=== PATIENT | female | born 1980 | race Hispanic/Latino ===

== ENCOUNTER 2025-03-29 02:20 | Emergency (ER) | payer BC ==
[~2025-03-29] VITALS: Ht 160 cm; Wt 80.7 kg
--- NOTE | 2025-03-29 02:23 | NUR ---
UA CUP PROVIDED
--- NOTE | 2025-03-29 02:30 | NUR ---
REPORT TO SIMBA SHEEHAN
--- NOTE | 2025-03-29 02:30 | NUR ---
UA COLLECTED AND SENT
[2025-03-29 02:39] LABS: APPEARANCE,URINE CLEAR (CLEAR); GLUCOSE, URINE (UA) NEGATIVE (NEGATIVE); LEUKOCYTE ESTERASE ,URINE NEGATIVE Leu/uL (NEGATIVE); NITRATE,URINE NEGATIVE (NEGATIVE); OCCULT BLOOD,URINE SMALL (NEGATIVE)
[2025-03-29 02:48] LABS: ADD UA MICROSCOPIC YES
[2025-03-29 02:49] LABS: SQUAMOUS EPITHELIAL CELL,UR FEW /HPF (0-2)
[2025-03-29 02:50] LABS: IMMATURE GRANULOCYTE ABSOLUTE 0.07 K/uL (0-1); NUCLEATED RED BLOOD CELLS 0.0 % (0.0-0.19); PLATELET COUNT (AUTO) 251 K/uL (130-400); RED BLOOD CELL COUNT(AUTO) 4.09 MIL/uL (4.00-5.50); RED CELL DISTRIBUTION WIDTH 13.1 % (11.0-15.5); WHITE BLOOD COUNT (AUTO) 18.0 K/uL (4.8-10.8)
--- NOTE | 2025-03-29 02:58 | ERN ---
General Chief Complaint: Nausea,Vomiting,Diarrhea Stated Complaint: NAUSEA/VOMITING, DIARRHEA Time Seen by MD: 02:24 Source: patient, family History of Present Illness Initial Comments 44-year-old healthy female who comes in with nausea vomiting and diarrhea of sudden onset after eating dinner tonight. All of the foods she ate tonight she has eaten before. No fevers but positive chills. No urinary tract symptoms does not know she is . Prior surgeries. Allergies: Coded Allergies: No Known Allergies (Unverified Allergy, Unknown, 03/29/25) Past Medical History Past Medical History: No Pertinent History Past Surgical History: None Constitutional: (+) chills EENTM: (-) eye pain, (-) blurred vision, (-) tearing, (-) double vision, (-) ear pain, (-) ear discharge, (-) nose pain, (-) nose congestion, (-) throat pain, (-) Throat swelling, (-) mouth pain, (-) tooth pain, (-) mouth swelling, (-) other documentation Respiratory: (-) cough, (-) orthopnea, (-) short of breath, (-) stridor, (-) wheezing, (-) other documentation Cardiovascular: (-) chest pain, (-) edema, (-) palpitations, (-) syncope, (-) dyspnea on exertion, (-) other documentation Gastrointestinal/Abdominal: (+) nausea, (+) vomiting, (+) diarrhea Genitourinary: (-) vaginal discharge, (-) vaginal bleeding, (-) dysuria, (-) frequency, (-) hematuria, (-) pain, (-) other documentation Musculoskeletal: (-) Neck pain, (-) back pain, (-) Flank Pain, (-) joint pain, (-) joint swelling, (-) muscle pain, (-) muscle stiffness, (-) gout, (-) other documentation Skin: (-) laceration, (-) contusion, (-) abrasion, (-) abscess, (-) rash, (-) change in color, (-) change in hair, (-) change in nails, (-) diaphoresis, (-) dryness, (-) other documentation Physical Exam General Appearance: (+) mild distress Orientation: (+) alert, (+) oriented x 3 Head/Face Trauma: No Eye: bilateral eye normal inspection, bilateral eye PERRL, bilateral eye EOMI Ear, Nose, Throat: (+) hearing grossly normal, (+) normal ENT inspection, (+) moist mucous membraine Neck: (+) normal inspection, (+) supple, (+) full range of motion Respiratory: (+) chest non-tender, (+) lungs clear, (+) well ventilated Heart: (+) regular, (+) no gallop Vascular: (+) no edema, (+) normal peripheral pulse, (+) no JVD Gastrointestinal: (+) soft, (+) non-tender, (+) bowel sound present Results Laboratory and Microbiology Lab and Micro Result Laboratory Tests Test 03/29/25 02:30 03/29/25 02:44 Urine Color YELLOW (YELLOW) Urine Appearance CLEAR (CLEAR) Urine pH 5.0 (5.0-8.0) Urine Specific [place] 1.029 (1.001-1.031) Urine Protein NEGATIVE mg/dL (NEGATIVE) Urine Glucose (UA) NEGATIVE mg/dL (NEGATIVE) Urine Ketones 40 mg/dL (NEGATIVE) H Urine Occult Blood SMALL (NEGATIVE) H Urine Nitrate NEGATIVE (NEGATIVE) Urine Bilirubin NEGATIVE mg/dL (NEGATIVE) Urine Urobilinogen 0.2 mg/dL (0.2-1.0) Urine Leukocyte Esterase NEGATIVE Anjum/uL Urine RBC 2-5 /HPF (0-1) H Urine WBC 2-5 /HPF (0-1) H Urine Squamous Epithelial Cells FEW /HPF (0-2) Urine Bacteria None /HPF (None Seen) Urine HCG, Qualitative NEGATIVE (NEGATIVE) White Blood Count 18.0 K/uL (4.8-10.8) H Red Blood Count 4.09 MIL/uL (4.00-5.50) Hemoglobin 12.6 g/dL (12.0-16.0) Hematocrit 37.4 % (36-48) Mean Corpuscular Volume 91.4 fL (79-99) Mean Corpuscular Hemoglobin 30.8 pg (27.0-33.0) Mean Corpuscular Hemoglobin Concent 33.7 g/dL (32.0-36.0) Red Cell Distribution Width 13.1 % (11.0-15.5) Platelet Count 251 K/uL (130-400) Mean Platelet Volume 10.1 fL (7.5-10.5) Immature Granulocyte % (Auto) 0.4 % (0-1) Neutrophils (%) (Auto) 93.0 % (40.0-77.0) H Lymphocytes (%) (Auto) 2.9 % (21.0-51.0) L Monocytes (%) (Auto) 3.3 % (3.0-13.0) Eosinophils (%) (Auto) 0.2 % (0.0-8.0) Basophils (%) (Auto) 0.2 % (0.0-5.0) Neutrophils # (Auto) 16.7 K/uL (1.8-7.7) H Lymphocytes # (Auto) 0.5 K/uL (1.0-4.8) L Monocytes # (Auto) 0.6 K/uL (0.1-1.0) Eosinophils # (Auto) 0.03 K/uL (0.00-0.70) Basophils # (Auto) 0.03 K/uL (0.00-0.20) Absolute Immature Granulocyte (auto 0.07 K/uL (0-1) Nucleated Red Blood Cells 0.0 % (0.0-0.19) White Cell Morphology Comment See comments Sodium Level 139 mmol/L (136-145) Potassium Level 4.0 mmol/L (3.5-5.1) Chloride Level 104 mmol/L (101-111) Carbon Dioxide Level 25 mmol/L (21-32) Blood Urea Nitrogen 20 mg/dL (7-18) H Creatinine 0.9 mg/dL (0.5-1.0) Glomerular Filtration Rate Calc 82 mL/min (>90) Random Glucose 154 mg/dL (70-105) H Total Calcium 8.5 mg/dL (8.5-10.1) Lipase 23 U/L (16-77) MDM MDM: Differential diagnosis: Gastroenteritis, , UTI, dehydration, food allergy Rationale: Tests considered and ordered secondary to shared decision making include: Previous outside records reviewed: Old ER visits. Risk of complication and/or morbidity or mortality of patient management: None Medications-Per medication reconciliation Need for hospitalization: Patient does meet criteria for hospitalization. Need for emergency major/minor surgery: No There are no social concerns with this patient. Prescription drug management Prescriptions will include symptomatic care Patient's prior external medical records from other ER visits were reviewed by me as indicated. Prior testing and results from previous visits were reviewed. Prior tests were taken into account with medical decision making and resource utilization, independent historian/historians were used to obtain complete medical history. I independently interpreted the test that were performed, results were reviewed by me and considered findings on radiology if ordered. Laboratory study shows an elevated white blood cell count and her urine shows ketones. Otherwise her lab studies are normal: Sodium chloride bicarb and potassium are all normal. Creatinine is normal. BUN slightly elevated and glucose slightly elevated. This is consistent with the acute gastroenteritis. Patient's abdominal exam is extremely benign. I do not feel a CT scan is warranted. ED Course Orders Procedure Category Date Status Time Vital Signs Per CPOE 03/29/25 Transmitted Routine 02:24 Saline Lock Iv CPOE 03/29/25 Transmitted 02:24 Cbc With Differential LAB 03/29/25 Complete 02:24 Lipase LAB 03/29/25 Complete 02:24 Urinalysis Profile LAB 03/29/25 Complete 02:24 Basic Metabolic Panel LAB 03/29/25 Complete 02:24 ,Urine Test LAB 03/29/25 Complete 02:44 Ondansetron 4mg Inj PHA 03/29/25 Complete (Zofran 4mg Inj) 03:00 Lactated Ringers PHA 03/29/25 Complete 1000ml (Lactated 02:44 Diphenoxylate PHA 03/29/25 Complete Hcl/Atropine (Lomotil) 03:30 Current Medications Medications (Trade) Dose Ordered Sig/Rachael Route PRN Reason Start Time Stop Time Status Last Admin Dose Admin Diphenoxylate HCl/ Atropine (Lomotil) 1 tab ONCE ONCE PO 03/29/25 03:30 03/29/25 03:43 DC Lactated Ringer's (Lactated Ringers 1000ml) 1,000 ml BOLUS STAT IV 03/29/25 02:44 03/29/25 03:01 DC 03/29/25 03:11 Ondansetron HCl (zoFRAN 4MG INJ) 4 mg ONCE ONCE IVP 03/29/25 03:00 03/29/25 03:01 DC 03/29/25 03:11 Vital Signs Date Time Temp Pulse Resp B/P (MAP) Pulse Ox O2 Delivery O2 Flow Rate FiO2 03/29/25 02:22 98.2 67 20 130/63 98 Room Air DX & DISP Disposition: Discharge Departure Condition: Stable Scripts Ondansetron (Ondansetron Odt) 4 Mg Tab.rapdis 1 TAB PO Q6HPRN PRN for nausea/vomiting for 4 Days, #16 TAB 0 Refills Prov: YUMIKO WILLINGHAM MD 03/29/25 Additional Instructions: I think you have gastroenteritis. There was no role for antibiotics in treating this. It is more important that you stay hydrated over being able to eat food. For the next 24-48 hours try and drink water or Pedialyte. You can then try a bland diet of rice and chicken after that. I expect you will be fine in the next day or two. If you can not stay hydrated please come back to the emergency room. Referrals: NONE (PCP) YUMIKO WILLINGHAM MD Mar 29, 2025 02:58
[2025-03-29 03:00] LABS: CREATININE 0.9 mg/dL (0.5-1.0); GLOMERULAR FILTR. RATE CALC 82.0 mL/min (>90); GLUCOSE,RANDOM 154.0 mg/dL (70-105); SODIUM SERUM 139.0 mmol/L (136-145); UREA NITROGEN, BLOOD 20.0 mg/dL (7-18)
[2025-03-29] MEDS: LACTATED RINGERS 1000ML IV STA (03:11)
[2025-03-29] MEDS: DIPHENOXYLATE HCL/ATROPINE 2.5/0.025 MG TAB PO ONE (04:22)
[2025-03-29] MEDS ORDERED: ONDA-243 PO (04:23)
[2025-03-29 05:05] VITALS: BP 130/80; PULSE 80; RESP 17; TEMP 98.5; O2SAT 99
== END 2025-03-29 05:06 ==
LOC: EDH 02:20
DX: R11.2 Nausea with vomiting, unspecified (principal); R19.7 Diarrhea, unspecified
CPT/HCPCS: 99284; 96374; 80048; 83690; 85025; 81001; 81025; 36415; J7120; J2405